=== PATIENT | female | born 1945 | race Two or more races ===

== ENCOUNTER 2024-07-30 23:18 | Inpatient (IN) | payer OTHER ==
[~2024-07-30] VITALS: Ht 154.9 cm; Wt 54.4 kg
[2024-07-31 00:22] LABS: Basophils # (auto) 0.1 10 ^3/uL (0-0.2); Basophils % (auto) 0.4 % (0.0-2.0); Eosinophils # (auto) 0.1 10 ^3/uL (0-0.8); Eosinophils % (auto) 0.4 % (0.0-7.0); Hemoglobin 16.5 g/dL (12.2-16.2); Lymphocytes # (auto) 1.5 10 ^3/uL (0.4-5.4); Lymphocytes % (auto) 12.8 % (10.0-50.0); Mean Corpuscular Hemoglobin 33.8 pg (28.0-32.0); Mean Corpuscular Hgb Conc. 34.5 g/dL (32.0-36.0); Monocytes % (auto) 8.6 % (0.0-12.0); Neutrophils # (auto) 9.1 10 ^3/uL (1.6-8.6); Neutrophils % (auto) 77.8 % (37.0-80.0); Platelet Count (auto) 334 10^3/uL (140-450); Red Cell Distribution Width 12.8 % (11.8-14.3); White Blood Cell 11.7 10^3/uL (4.4-10.8)
[2024-07-31 00:26] LABS: Chloride 97 mmol/L (98-107); Potassium 3.7 mmol/L (3.5-5.1); Sodium 129 mmol/L (136-145)
[2024-07-31 00:27] LABS: Anion Gap 9 (5-15); Calcium 10.2 mg/dL (8.7-10.4); Carbon Dioxide 23 mmol/L (20-31)
[2024-07-31 00:32] LABS: BUN/Creatinine Ratio 10.4 (10.0-20.0); Blood Urea Nitrogen 8 mg/dL (9-23); Glucose 165 mg/dL (74-106)
[2024-07-31] MEDS: dilTIAZem 25 MG/5 ML VIAL IV ONE (00:42)
[2024-07-31] MEDS: LORazepam 2MG/ML-1ML VIAL IV ONE (01:11)
[2024-07-31 02:13] LABS: Urine WBC None Seen /hpf (0 - 5)
[2024-07-31 02:20] LABS: Urine Bacteria FEW /hpf (None Seen); Urine Blood Negative /uL (Negative); Urine Clarity Clear (Clear); Urine Protein, UAD TRACE (Negative); Urine Specific Gravity 1.006 (1.001-1.035); Urine Urobilinogen Normal (Negative)
[2024-07-31 02:21] LABS: Urine Color STRAW (Yellow)
[2024-07-31] MEDS ORDERED: ACETAMINOPHEN 325 MG TAB PO PRN (04:00)
[2024-07-31] MEDS ORDERED: NITROGLYCERIN 0.4 MG SL TAB SL PRN (04:00)
[2024-07-31] MEDS ORDERED: MORPHINE SULFATE INJ 2 MG/ml SYRG IV PRN (04:00)
[2024-07-31] MEDS ORDERED: ONDANSETRON HCL 4 MG/2 ML VIAL IV PRN (04:00)
[2024-07-31 07:30] VITALS: PULSE 94; RESP 20; O2SAT 98
[2024-07-31 08:47] LABS: Magnesium 1.9 mg/dL (1.6-2.6)
[2024-07-31] MEDS: METOPROLOL TARTRATE 25 MG TAB PO SCH (10:00)
[2024-07-31] MEDS ORDERED: ENOXAPARIN SOD 40 MG/0.4 ML SYRINGE SC SCH (10:00)
[2024-07-31] MEDS: ASPirin 81 mg TAB PO SCH (10:00)
[2024-07-31] MEDS: GADOTERATE MEG 10 MMOL/20ml INJ (0.5MMOL/ml) IV ONE (10:29)
[2024-07-31] MEDS: ATORVASTATIN 20 MG TAB PO SCH (10:30)
[2024-07-31] MEDS: SODIUM CHLORIDE 0.9% 1,000 ML IV SCH (11:00)
[2024-07-31] MEDS: ENOXAPARIN SOD 100 MG/1 ML SYRINGE SC SCH (11:00)
[2024-07-31 13:50] LABS: Amphetamine Screen, Urine Neg (NEGATIVE); Barbiturate Scree,Urine Neg (NEGATIVE); Benzodiazephine Screen, Urine Neg (NEGATIVE)
[2024-07-31 13:51] LABS: Cannabinoid Screen, Urine Neg (NEGATIVE); Cocaine Screen, Urine Neg (NEGATIVE); Opiate Scree,Urine Neg (NEGATIVE); Phencyclidine Screen, Urine Neg (NEGATIVE)
[2024-07-31] MEDS: PANTOPRAZOLE 40 MG/10 ML VIAL INJ IV ONE (15:17)
[2024-07-31] MEDS: LABETALOL HCL 20 MG/4 ML VL IV PRN (18:23)
[2024-07-31 19:30] VITALS: PULSE 98; RESP 20; O2SAT 97
[2024-07-31 21:14] VITALS: BP 167/103; PULSE 103; RESP 20; TEMP 98; O2SAT 99
[2024-07-31] MEDS ORDERED: ATORVASTATIN 20 MG TAB PO SCH (22:00)
[2024-07-31 22:04] VITALS: PULSE 94; RESP 18; O2SAT 100
[2024-08-01] VITALS (8 sets, daily range): BP systolic 127–157; BP diastolic 86–99; PULSE 71–129; RESP 16–20; TEMP 97.5–99.1; O2SAT 96–100
[2024-08-01 06:49] LABS: Basophils # (auto) 0.1 10 ^3/uL (0-0.2); Basophils % (auto) 1.1 % (0.0-2.0); Eosinophils # (auto) 0.1 10 ^3/uL (0-0.8); Eosinophils % (auto) 0.7 % (0.0-7.0); Hematocrit 47.7 % (36.0-46.0); Hemoglobin 15.9 g/dL (12.2-16.2); Lymphocytes # (auto) 1.3 10 ^3/uL (0.4-5.4); Lymphocytes % (auto) 12.1 % (10.0-50.0); Mean Corpuscular Hgb Conc. 33.3 g/dL (32.0-36.0); Mean Corpuscular Volume 99.2 fL (80.0-100.0); Monocytes # (auto) 1.1 10 ^3/uL (0-1.3); Monocytes % (auto) 10.5 % (0.0-12.0); Neutrophils # (auto) 8.1 10 ^3/uL (1.6-8.6); Neutrophils % (auto) 75.6 % (37.0-80.0); Nucleated Red Blood Cells % 0.1 %; Platelet Count (auto) 331 10^3/uL (140-450); Red Blood Cells 4.81 10^6/uL (4.0-5.20); Red Cell Distribution Width 12.9 % (11.8-14.3); White Blood Cell 10.7 10^3/uL (4.4-10.8)
[2024-08-01 06:59] LABS: Chloride 102 mmol/L (98-107); Potassium 3.8 mmol/L (3.5-5.1); Sodium 132 mmol/L (136-145)
[2024-08-01 07:00] LABS: Anion Gap 9 (5-15); Carbon Dioxide 21 mmol/L (20-31)
[2024-08-01 07:05] LABS: BUN/Creatinine Ratio 12.9 (10.0-20.0); Blood Urea Nitrogen 12 mg/dL (9-23); Glucose 139 mg/dL (74-106)
[2024-08-01] MEDS: PANTOPRAZOLE 40 MG/10 ML VIAL INJ IV SCH (09:32)
[2024-08-01] MEDS: METOPROLOL TARTRATE 25 MG TAB PO ONE (12:12)
[2024-08-01] MEDS: APIXABAN 5 MG TAB PO ONE (12:13)
[2024-08-01] MEDS: METOPROLOL TARTRATE 25 MG TAB PO SCH (21:33)
[2024-08-01] MEDS: ATORVASTATIN 20 MG TAB PO SCH (21:33)
[2024-08-01] MEDS: APIXABAN 5 MG TAB PO SCH (21:33)
[2024-08-02] VITALS (7 sets, daily range): BP systolic 121–166; BP diastolic 85–96; PULSE 78–104; RESP 16–18; TEMP 97.5–98.7; O2SAT 96–99
[2024-08-02] MEDS: METOPROLOL TARTRATE 50 MG TAB PO SCH (09:46)
[2024-08-02 11:40] LABS: Potassium 4.2 mmol/L (3.5-5.1)
[2024-08-02 11:47] LABS: Magnesium 2.3 mg/dL (1.6-2.6)
== END 2024-08-02 19:00 | disposition short-term general hospital (02) | DRG 64 ==
LOC: ER 23:18 → EDBD 23:18 → TELE 07-31 03:54 → TELE-WESTW 07-31 21:10
PROVIDERS: ADMIT Nurse Practitioner; ATTEND Internal Medicine
DX: I63.9 Cerebral infarction, unspecified (principal); G93.41 Metabolic encephalopathy; I21.4 Non-ST elevation (NSTEMI) myocardial infarction; I50.41 Acute combined systolic (congestive) and diastolic (congestive) heart failure; E87.1 Hypo-osmolality and hyponatremia; D68.69 Other thrombophilia; I11.0 Hypertensive heart disease with heart failure; D32.9 Benign neoplasm of meninges, unspecified; I48.91 Unspecified atrial fibrillation; R26.9 Unspecified abnormalities of gait and mobility; R73.03 Prediabetes; F17.200 Nicotine dependence, unspecified, uncomplicated; Z82.49 Family history of ischemic heart disease and other diseases of the circulatory system; Z86.011 Personal history of benign neoplasm of the brain; Z79.899 Other long term (current) drug therapy
CPT/HCPCS: 36415; 70553; 71045; 80048; 80061; 80307; 81001; 82962; 83036; 83605; 83735; 83880; 84132; 84443; 84484; 85025; 87040; 92610; 93005; 93306; 93886; 97163; 99291; G0378; J2470